=== PATIENT | female | born 1990 | race Caucasian/White ===

== ENCOUNTER 2024-03-29 11:55 | Emergency (ER) | payer OTHER ==
[~2024-03-29] VITALS: Ht 177.8 cm; Wt 86.2 kg
[2024-03-29] MEDS: methylPREDNISolone SOD SUCC 125 MG/2ML VIAL IV ONE (12:30)
[2024-03-29] MEDS: diphenhydrAMINE HCL 50 MG/ML VIAL IV ONE (12:30)
[2024-03-29] MEDS: FAMOTIDINE/PF INJ 20 MG/2 ML VIAL IV ONE (12:30)
[2024-03-29] MEDS: EPINEPHRINE (1:1000) 1 MG/ML AMPUL SUBCUT ONE (12:30)
[2024-03-29] MEDS: IV NS 0.9% 1,000 ML BAG IV ONE (12:30)
[2024-03-29 12:50] LABS: BASOPHILS # (AUTO) 0.1 K/uL (0.0-0.2); BASOPHILS % (AUTO) 0.9 % (0.0-2.0); EOSINOPHILS % (AUTO) 0.5 % (0.0-6.0); HEMATOCRIT 43 % (33-45); HEMOGLOBIN 14.8 g/dL (11.5-14.8); LYMPHOCYTES # (AUTO) 1.6 K/uL (0.8-4.8); LYMPHOCYTES % (AUTO) 18.9 % (20.0-44.0); MEAN CORPUSCULAR HEMOGLOBIN 33 PG (26.0-33.0); MEAN CORPUSCULAR HGB CONC 34 g/dl (31.0-36.0); MEAN CORPUSCULAR VOLUME 98 fL (82-100); MONOCYTES # (AUTO) 0.5 K/uL (0.1-1.30); MONOCYTES % (AUTO) 5.8 % (2.0-12.0); NEUTROPHILS # (AUTO) 6.3 K/uL (1.8-8.9); NEUTROPHILS % (AUTO) 73.9 % (43.0-81.0); PLATELET COUNT (AUTO) 229 K/uL (150-450); RED BLOOD CELL COUNT(AUTO) 4.44 MIL/uL (4.0-5.2); RED CELL DISTRIBUTION WIDTH 12.3 % (11.5-15.0); WHITE BLOOD COUNT (AUTO) 8.5 K/uL (4.3-11.0)
[2024-03-29] MEDS ORDERED: methylPREDNISolone SOD SUCC 125 MG/2ML VIAL ONE (12:50)
[2024-03-29] MEDS ORDERED: EPINEPHRINE (1:1000) 1 MG/ML AMPUL ONE (12:50)
[2024-03-29] MEDS ORDERED: diphenhydrAMINE HCL 50 MG/ML VIAL ONE (12:50)
[2024-03-29] MEDS ORDERED: FAMOTIDINE/PF INJ 20 MG/2 ML VIAL IV ONE (12:50)
[2024-03-29 12:57] LABS: APPEARANCE,URINE CLEAR (CLEAR); BILIRUBIN,URINE NEGATIVE (NEGATIVE); BLOOD, URINE 1+ Ery/uL (NEGATIVE); COLOR,URINE YELLOW (YELLOW); KETONES,URINE 1+ mg/dL (NEGATIVE); LEUKOCYTE ESTERASE ,URINE NEGATIVE (NEGATIVE); NITRITE, URINE NEGATIVE (NEGATIVE); PROTEIN,URINE NEGATIVE (NEGATIVE); UGLUCOSE NEGATIVE (NEGATIVE); UROBILINOGEN,URINE 0.2 EU/dL (0.2)
[2024-03-29 13:02] LABS: ADD URINE CULTURE NO; BACTERIA,URINE 1+ /HPF (None Seen)
[2024-03-29 13:06] LABS: CALCIUM, SERUM 9.2 mg/dL (8.5-10.1); CARBON DIOXIDE 26 mmol/L (21-32); CHLORIDE 110 mmol/L (98-107); GLUCOSE 87 mg/dL (74-106); POTASSIUM 3.7 mmol/L (3.5-5.1); SODIUM SERUM 143 mmol/L (136-145); UREA NITROGEN, BLOOD 9 mg/dL (7-18)
[2024-03-29] MEDS ORDERED: DIPH25CA83 PO (14:22)
[2024-03-29] MEDS ORDERED: CEPH-570 PO (14:22)
[2024-03-29] MEDS ORDERED: EPIN0.3P3 IM (14:22)
[2024-03-29] MEDS ORDERED: FAMO-131 PO (14:22)
[2024-03-29] MEDS ORDERED: PRED20TA PO (14:22)
[2024-03-29 15:00] VITALS: BP 109/72; TEMP 98.5; O2SAT 98
== END 2024-03-29 15:01 | disposition home or self-care (01) ==
LOC: ER 12:25
DX: T78.40XA Allergy, unspecified, initial encounter (principal); N39.0 Urinary tract infection, site not specified; R07.89 Other chest pain; R06.02 Shortness of breath; R43.9 Unspecified disturbances of smell and taste; Z86.711 Personal history of pulmonary embolism; Z86.718 Personal history of other venous thrombosis and embolism; Z88.0 Allergy status to penicillin; X58.XXXA Exposure to other specified factors, initial encounter
CPT/HCPCS: 99285; 96374; 96375; 71045; 96361; 93005; 85025; 80048; 85378; 81001; 36415; 84484; 96372; J1200; J0171; J3490; J2919; J7030; A4223

== ENCOUNTER 2024-04-08 08:58 | Emergency (ER) | payer OTHER ==
[~2024-04-08] VITALS: Ht 180.3 cm; Wt 86.2 kg
[~2024-04-08 08:58] MED LIST: CEPH-570 PO; DIPH25CA83 PO; EPIN0.3P3 IM; FAMO-131 PO; PRED20TA PO
[2024-04-08] MEDS ORDERED: KETOROLAC TROMETHAMINE 15 MG/ML VIAL ONE (09:44)
[2024-04-08] MEDS: KETOROLAC TROMETHAMINE 15 MG/ML VIAL IV ONE (09:45)
[2024-04-08 09:55] LABS: APPEARANCE,URINE CLEAR (CLEAR); BILIRUBIN,URINE NEGATIVE (NEGATIVE); BLOOD, URINE TRACE-INTA Ery/uL (NEGATIVE); KETONES,URINE NEGATIVE (NEGATIVE); LEUKOCYTE ESTERASE ,URINE NEGATIVE (NEGATIVE); NITRITE, URINE NEGATIVE (NEGATIVE); PH,URINE 6.5 (5.0-8.0); PROTEIN,URINE NEGATIVE (NEGATIVE); UGLUCOSE NEGATIVE (NEGATIVE); UROBILINOGEN,URINE 0.2 EU/dL (0.2)
[2024-04-08 09:56] LABS: COLOR,URINE LIGHT YELLOW (YELLOW)
[2024-04-08 09:57] LABS: PREGNANCY TEST URINE QUAL NEGATIVE (NEGATIVE)
[2024-04-08] MEDS ORDERED: IV NS 0.9% 250 ML IV ONE ×2 (10:03→10:06)
[2024-04-08] MEDS ORDERED: IOHEXOL 50 ML IV ONE (10:04)
[2024-04-08] MEDS ORDERED: IOHEXOL-300 100 ML VIAL IV ONE (10:05)
[2024-04-08] MEDS ORDERED: CT SWABBABLE VALVE TRANS SET 1 EA INFUS.SET MC ONE (10:05)
[2024-04-08 10:34] LABS: ADD URINE CULTURE NO; BACTERIA,URINE Few /HPF (None Seen); SQUAMOUS EPITHELIAL CELL,UR 0-2 /HPF (None Seen)
[2024-04-08 10:38] LABS: ALBUMIN 4.8 g/dL (3.4-5.0); BILIRUBIN,DIRECT 0.1 mg/dL (0.0-0.2); BILIRUBIN,TOTAL 0.5 mg/dL (0.2-1.0); CALCIUM, SERUM 9.3 mg/dL (8.5-10.1); CREATININE 0.9 mg/dL (0.6-1.3); POTASSIUM 3.7 mmol/L (3.5-5.1); TOTAL PROTEIN, SERUM 10.5 g/dL (6.4-8.2)
[2024-04-08 10:42] LABS: BASOPHILS # (AUTO) 0.1 K/uL (0.0-0.2); BASOPHILS % (AUTO) 0.9 % (0.0-2.0); EOSINOPHILS # (AUTO) 0.2 K/uL (0.0-0.7); EOSINOPHILS % (AUTO) 2.4 % (0.0-6.0); HEMATOCRIT 46 % (33-45); HEMOGLOBIN 15.9 g/dL (11.5-14.8); LYMPHOCYTES # (AUTO) 2.2 K/uL (0.8-4.8); LYMPHOCYTES % (AUTO) 30.9 % (20.0-44.0); MEAN CORPUSCULAR HEMOGLOBIN 33 PG (26.0-33.0); MEAN CORPUSCULAR HGB CONC 35 g/dl (31.0-36.0); MEAN CORPUSCULAR VOLUME 96 fL (82-100); MONOCYTES # (AUTO) 0.5 K/uL (0.1-1.30); MONOCYTES % (AUTO) 6.6 % (2.0-12.0); NEUTROPHILS # (AUTO) 4.2 K/uL (1.8-8.9); NEUTROPHILS % (AUTO) 59.2 % (43.0-81.0); PLATELET COUNT (AUTO) 233 K/uL (150-450); RED BLOOD CELL COUNT(AUTO) 4.81 MIL/uL (4.0-5.2); RED CELL DISTRIBUTION WIDTH 12.3 % (11.5-15.0); WHITE BLOOD COUNT (AUTO) 7.1 K/uL (4.3-11.0)
[2024-04-08] MEDS ORDERED: PHEN-704 PO (11:33)
[2024-04-08 11:43] VITALS: BP 138/67; TEMP 99.2; O2SAT 100
== END 2024-04-08 12:02 | disposition home or self-care (01) ==
LOC: ER 09:06
DX: D25.9 Leiomyoma of uterus, unspecified (principal); R30.0 Dysuria; Z79.52 Long term (current) use of systemic steroids; Z86.711 Personal history of pulmonary embolism; Z86.718 Personal history of other venous thrombosis and embolism; Z88.0 Allergy status to penicillin; Z88.2 Allergy status to sulfonamides
CPT/HCPCS: 99285; 74177; 96374; 76856; 85025; 80048; 83690; 80076; 84703; 81001; 36415; J7050 ×2; Q9967 ×2; J1885

== ENCOUNTER 2025-01-24 10:00 | Emergency (ER) | payer OTHER ==
[~2025-01-24 10:00] MED LIST changes: +PHEN-704 PO
[2025-01-24 10:37] LABS: PLATELET COUNT (AUTO) 179 K/uL (150-450); RED BLOOD CELL COUNT(AUTO) 4.68 MIL/uL (4.0-5.2); RED CELL DISTRIBUTION WIDTH 12.4 % (11.5-15.0); WHITE BLOOD COUNT (AUTO) 6.1 K/uL (4.3-11.0)
[2025-01-24 10:49] LABS: CALCIUM, SERUM 9.7 mg/dL (8.5-10.1); CREATININE 0.9 mg/dL (0.6-1.3); SODIUM SERUM 138.0 mmol/L (136-145); UREA NITROGEN, BLOOD 11.0 mg/dL (7-18)
[2025-01-24 10:49] LABS: ADD URINE CULTURE NO; APPEARANCE,URINE CLEAR (CLEAR); BLOOD, URINE NEGATIVE Ery/uL (NEGATIVE); LEUKOCYTE ESTERASE ,URINE TRACE (NEGATIVE); NITRITE, URINE NEGATIVE (NEGATIVE); SQUAMOUS EPITHELIAL CELL,UR Few /HPF (None Seen); UGLUCOSE NEGATIVE (NEGATIVE)
[2025-01-24 10:56] LABS: ASPARTATE AMINOTRANSFERASE 22.0 U/L (15-37); TOTAL PROTEIN, SERUM 7.4 g/dL (6.4-8.2)
[2025-01-24] MEDS ORDERED: ONDANSETRON HCL/PF 4 MG/2 ML VIAL ONE (11:02)
[2025-01-24] MEDS ORDERED: MORPHINE SULFATE INJ 4 MG/ML DISP.SYRIN ONE (11:03)
[2025-01-24] MEDS ORDERED: IOHEXOL-300 100 ML VIAL IV ONE (11:06)
[2025-01-24] MEDS ORDERED: IV NS 0.9% 250 ML IV ONE (11:07)
[2025-01-24] MEDS: IV LR 1000 ML 1,000 ML BAG IV ONE (11:33)
[2025-01-24] MEDS: MORPHINE SULFATE INJ 2 MG/ML DISP.SYRIN IV ONE (11:34)
[2025-01-24] MEDS: ONDANSETRON HCL/PF 4 MG/2 ML VIAL IV ONE (11:34)
[2025-01-24] MEDS ORDERED: DICY10CA37 PO (14:13)
[2025-01-24 14:21] VITALS: BP 118/85; TEMP 98; O2SAT 100
== END 2025-01-24 14:30 | disposition home or self-care (01) ==
LOC: ER 10:07
DX: R10.32 Left lower quadrant pain (principal); R19.7 Diarrhea, unspecified; R10.2 Pelvic and perineal pain; Z79.01 Long term (current) use of anticoagulants; Z79.52 Long term (current) use of systemic steroids; Z86.711 Personal history of pulmonary embolism; Z86.718 Personal history of other venous thrombosis and embolism; Z88.0 Allergy status to penicillin; Z88.2 Allergy status to sulfonamides
CPT/HCPCS: 99285; 74177; 96374; 76856; 96361; 96375; 85025; 80048; 87086; 83690; 80076; 81001; 36415; 84702; J2270; J2405; J7120 ×2; J7050; Q9967